=== PATIENT | male | born 1965 | race Caucasian/White ===

== ENCOUNTER 2022-09-15 09:01 | Outpatient (CLI) | payer BC, SELFPAY ==
--- NOTE | ~2022-09-15 | CT_ITS ---
CT Scan of the Chest without Contrast: Clinical Indication: Lung cancer screening, personal history of nicotine dependence Technique: Contiguous sections were acquired throughout the chest without intravenous contrast. Dose reduction technique was used on this scan by utilizing automated exposure control and iterative recon struction technique. The dose-length product (DLP) was 73.37 mGy-cm. Findings: There is no evidence of any significant mediastinal, hilar or axillary lymphadenopathy. There are mil d atherosclerotic calcifications of the aorta and coronary arteries. There is no evidence of pleural or pericardial effusion. The lungs are clear. No pulmonary nodules or infiltrates are noted. Images through the upper abdomen reveal no abnormalities. Impression: Lung RADS 1: Negative. 12 month follow-up screening CT advised. Reviewed, dictated and finalized at location . Impression: Lung RADS 1: Negative. 12 month follow-up screening CT advised.
== END 2022-09-15 09:02 | disposition home or self-care (01) ==
LOC: CHSIMG 09:05
PROVIDERS: PCP Physician Assistant; Visit Provider Physician Assistant
DX: Z12.2 Encounter for screening for malignant neoplasm of respiratory organs (principal); Z87.891 Personal history of nicotine dependence
CPT/HCPCS: 71271

== ENCOUNTER 2025-01-28 08:27 | Outpatient (CLI) | payer BC, SELFPAY ==
--- NOTE | ~2025-01-28 | CT_ITS ---
EXAMINATION:CT lung screening DATE: 01/28/2025 08:42 INDICATION: 80 pack-year history of smoking. TECHNIQUE: Computed tomography (CT) of the chest was performed without intravenous contrast. Automated exposure control and iterative reconstruction technique were employed. The dose-length product (DLP) was 89.96 mGy-cm. COMPARISON: Lung CT dated 09/15/2022. FINDINGS: Moderate centrilobular pattern of emphysema. No solid pulmonary nodule. No lymphadenopathy or effusion. Significant coronary artery calcification of left main and right coronary artery. IMPRESSION: 1. Emphysema without focal lesions. Continue annual low-dose screening. Lung RADS category 2 2. Multivessel coronary artery calcification. 3. Calcified gallstone in the upper abdomen. 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 Emphysema without focal lesions. Continue annual low-dose screening. Lung RA DS category 2 2. Multivessel coronary artery calcification. 3. Calcified gallstone in the upper abdomen.
--- OUTSIDE RECORDS SUMMARY | 2025-01-28 08:37 | XMS_ITS | Clinical Summary ---
Author Organization [facility] Address [address] [place] [id number] Care Team Providers Care Frame Hand Name Role Phone Unavailable Primary Care Provider Unavailabl e Social History Tobacco Use Types Packs/Day Years Used Date Smoking Tobacco: Never Assessed Sex and Gender Information Value Date Recorded Sex Assigned at Not on file Legal Sex Male 10:55 PM [employer] Gender Identity Not on file Sexual Orientation Not on file Plan of Treatment Health Maintenance Due Date Last Done Comments Colorectal Cancer Screening Colonoscopy (10 Years) 1964 Annual Physical 09/21/1967 Hepatitis C 1982 DTaP, Tdap and Td Vaccines ( 1 - Tdap) 09/21/1983 Pneumococcal Vaccine: 50+ Ye ars (1 of 1 - PCV) 2014 Zoster Vaccines (1 of 2) 2014 COVID-19 Vaccine (2024-2 6 season) 2024 Influenza Adult (#1) 2024 RSV Immunization or 60+ Years (1 - 1-dose 75+ series) 09/21/2039 Hepatitis A Vaccines Aged Out No long er eligible based on patient's age to complete this topic Meningococcal B Vaccine Aged Out No l onger eligible based on patient's age to complete this topic Meningococcal Vaccine Aged Out No bee samina eligible based on patient's age to complete this topic RSV Immunizations Under 20 Months Aged Out No longer eligible based on patient's age to complete this topic
== END 2025-01-28 08:28 | disposition home or self-care (01) ==
LOC: CHSIMG 08:30
PROVIDERS: PCP Family Medicine; Visit Provider Family Medicine
DX: Z12.2 Encounter for screening for malignant neoplasm of respiratory organs (principal); J43.9 Emphysema, unspecified; I25.10 Atherosclerotic heart disease of native coronary artery without angina pectoris; K80.80 Other cholelithiasis without obstruction
CPT/HCPCS: 71271